=== PATIENT | male | born 1955 | race Caucasian/White ===

== ENCOUNTER → 2016-05-12 | Outpatient (CLI) | payer OTHER ==
[~2016-05-12] MED LIST: BP MED; KEFLEX500 MG PO; MOTRIN800 MG PO; PRILOSEC20 MG PO
[2016-05-12 10:42] LABS: HEMATOCRIT 40.4 % (42.0-52.0); HEMOGLOBIN 13.8 g/dl (14.0-18.0); MEAN CELL VOLUME 82.1 fl (80.0-94.0); MEAN CORPUSCULAR HGB CONC 34.2 g/dl (33.0-37.0); MEAN PLATELET VOLUME 9.3 fl (9.6-12.3); RED BLOOD COUNT 4.92 10*6/uL (4.50-5.90); RED CELL DISTRI WIDTH 14.1 % (0-14.5); WHITE BLOOD COUNT 7.3 10*3/uL (4.8-10.8)
[2016-05-12 10:59] LABS: ALBUMIN 3.9 gm/dl (3.1-4.5); ALKALINE PHOSPHATASE 102 U/L (45-117); BILIRUBIN, TOTAL 0.4 mg/dl (0.2-1.0); BUN 19 mg/dl (7-24); CARBON DIOXIDE 27 mmol/L (21-32); CHLORIDE 105 mmol/L (98-107); EST GLOM FILT AFRICAN AMERICAN > 60 ml/min; GLUCOSE 95 mg/dL (65-99); POTASSIUM 4.2 mmol/L (3.5-5.1); SGOT/AST 18 IU/L (3-35); SGPT/ALT 32 U/L (12-78); SODIUM 142 mmol/L (136-145); TOTAL PROTEIN 7.3 gm/dL (6.4-8.2)
[2016-05-12 11:02] LABS: CHOLESTEROL 142 mg/dL (<200); HDL CHOLESTEROL 37 mg/dl (40-60); LDL CHOLESTEROL 73 mg/dL (9-159); TRIGLYCERIDES 162 mg/dl (<150); VLDL CHOLESTEROL 32 mg/dL (6-40)
== END | disposition home or self-care (01) ==
LOC: LAB 09:55
PROVIDERS: Family Medicine
DX: I10 Essential (primary) hypertension (principal); R19.7 Diarrhea, unspecified; E78.00 Pure hypercholesterolemia, unspecified; K21.9 Gastro-esophageal reflux disease without esophagitis